=== PATIENT | male | born 1970 | race African-American/Black ===

== ENCOUNTER 2017-06-24 18:00 | Emergency (ER) | payer OTHER ==
[~2017-06-24] VITALS: Ht 182.9 cm; Wt 77.1 kg
[~2017-06-24 18:00] MED LIST: ABILIFY15 MG ORAL; ABILIFY2 MG ORAL; ALBUTEROL2.5 MG/3 M INH; CELEXA20 MG ORAL; CELEXA40 MG ORAL; IBUPROFEN600 MG ORAL; NKM; TRAZODONE HCL150 MG ORAL; TRAZODONE HCL300 MG ORAL
[2017-06-24 18:10] VITALS: BP 151/110
[2017-06-24 19:33] LABS: EOSINOPHILS % (AUTO) 1.6 % (0.0-3.0); MEAN CORPUSCULAR HEMOGLOBIN 31.2 PG (27.0-31.0); MEAN CORPUSCULAR HGB CONC 33.5 G/DL (32.0-36.0); MEAN CORPUSCULAR VOLUME 93 FL (80-99); MEAN PLATELET VOLUME 6.2 FL (6.5-10.1); MONOCYTES % (AUTO) 2.3 % (1.0-10.0); NEUTROPHILS % (AUTO) 73.1 % (45.0-75.0); PLATELET COUNT 376 K/UL (150-450); RED BLOOD COUNT 4.55 M/UL (4.70-6.10); RED CELL DISTRIBUTION WIDTH 15.8 % (11.6-14.8); WHITE BLOOD COUNT 12.5 K/UL (4.8-10.8)
[2017-06-24 19:46] LABS: ACETAMINOPHEN < 10 ug/mL (10-30); ALANINE AMINOTRANSFERASE 16 U/L (3-41); ALCOHOL 356 mg/dL; ANION GAP 16 (5-15); ASPARTATE AMINO TRANSFERASE 30 U/L (5-40); CALCIUM 9.1 mg/dL (8.6-10.2); CARBON DIOXIDE 28 mEQ/L (20-30); CHLORIDE 98 mEQ/L (98-107); CREATININE 0.8 mg/dL (0.7-1.2); GLOMERULAR FILTRATION RATE > 60 mL/min (>60); HEMOLYSIS 4; POTASSIUM 3.8 mEQ/L (3.4-4.9); SODIUM 142 mEQ/L (135-145); TOTAL PROTEIN 9.2 g/dL (6.6-8.7); TROPONIN I < 0.30 ng/mL (<=0.30)
[2017-06-24 20:00] VITALS: BP 134/87
--- NOTE | 2017-06-24 20:04 | Emergency Room Report ---
History of Present Illness General Chief Complaint: Alcohol Intoxication Source: Patient (HUMBERTO JUAN M.D.) Present Illness HPI 47-year-old male presents ED for evaluation. Patient is intoxicated as per EMS. Found on the street. Patient was to drinking alcohol. Denies any drug use. Per EMS blood pressure is high. Patient has history of hypertension but does not have medication at this time. Denies chest pain or shortness of breath. No other aggravating or relieving factors. Denies any other associated symptoms (HUMBERTO JUAN M.D.) Allergies: Coded Allergies: No Known Allergies (Unverified , 08/07/12) Patient History Past Medical History: HTN, asthma, seizures Past Surgical History: none Pertinent Family History: none Social History: Reports: alcohol use, Denies: drug use, smoking Immunizations: UTD Reviewed Nursing Documentation: PMH: Agreed, PSxH: Agreed (HUMBERTO JUAN M.D.) Nursing Documentation-PMH Hx Hypertension: Yes Hx Asthma: Yes History Of Psychiatric Problem: Yes - [place]; Schizophrenia Hx Seizures: Yes - TONIC-CLONIC (HUMBERTO JUAN M.D.) Review of Systems All Other Systems: negative except mentioned in HPI (HUMBERTO JUAN M.D.) Physical Exam Vital Signs Date Time Temp Pulse Resp B/P Pulse Ox O2 Delivery O2 Flow Rate FiO2 06/24/17 17:49 97.9 100 18 147/100 100 Room Air Sp02 EP Interpretation: reviewed, normal General Appearance: other - intoxicated Head: normocephalic Eyes: bilateral eye PERRL, bilateral eye normal inspection ENT: normal ENT inspection Neck: normal inspection Respiratory: chest non-tender, lungs clear, normal breath sounds, speaking full sentences Cardiovascular #1: regular rate, rhythm, no edema Gastrointestinal: normal inspection Rectal: deferred Genitourinary: no CVA tenderness Musculoskeletal: normal inspection Neurologic: other - intoxicated Psychiatric: other - intoxicated Skin: normal inspection Lymphatic: normal inspection (HUMBERTO JUAN M.D.) Medical Decision Making Diagnostic Impression: Primary Impression: Acute alcoholic intoxication Qualified Codes: F10.920 - Alcohol use, unspecified with intoxication, uncomplicated Additional Impression: Drug abuse Labs Test 06/24/17 18:06 06/24/17 19:18 White Blood Count 12.5 K/UL (4.8-10.8) Red Blood Count 4.55 M/UL (4.70-6.10) Hemoglobin 14.2 G/DL (14.2-18.0) Hematocrit 42.5 % (42.0-52.0) Mean Corpuscular Volume 93 FL (80-99) Mean Corpuscular Hemoglobin 31.2 PG (27.0-31.0) Mean Corpuscular Hemoglobin Concent 33.5 G/DL (32.0-36.0) Red Cell Distribution Width 15.8 % (11.6-14.8) Platelet Count 376 K/UL (150-450) Mean Platelet Volume 6.2 FL (6.5-10.1) Neutrophils (%) (Auto) 73.1 % (45.0-75.0) Lymphocytes (%) (Auto) 22.0 % (20.0-45.0) Monocytes (%) (Auto) 2.3 % (1.0-10.0) Eosinophils (%) (Auto) 1.6 % (0.0-3.0) Basophils (%) (Auto) 1.0 % (0.0-2.0) Sodium Level 142 mEQ/L (135-145) Potassium Level 3.8 mEQ/L (3.4-4.9) Chloride Level 98 mEQ/L (98-107) Carbon Dioxide Level 28 mEQ/L (20-30) Anion Gap 16 (5-15) Blood Urea Nitrogen 4 mg/dL (7-23) Creatinine 0.8 mg/dL (0.7-1.2) Estimat Glomerular Filtration Rate > 60 mL/min (>60) Glucose Level 84 mg/dL (74-106) Calcium Level 9.1 mg/dL (8.6-10.2) Total Bilirubin < 0.2 mg/dL (0.0-1.2) Aspartate Amino Transf (AST/SGOT) 30 U/L (5-40) Alanine Aminotransferase (ALT/SGPT) 16 U/L (3-41) Alkaline Phosphatase 141 U/L (40-129) Troponin I < 0.30 ng/mL (<=0.30) Total Protein 9.2 g/dL (6.6-8.7) Albumin 4.8 g/dL (3.5-5.2) Globulin 4.4 g/dL Albumin/Globulin Ratio 1.0 (1.0-2.7) Salicylates Level < 1 mg/dL (10-30) Acetaminophen Level < 10 ug/mL (10-30) Serum Alcohol 356 mg/dL (HUMBERTO JUAN M.D.) ER Course Patient presents with polysubstance abuse. He slept through the night without a problem. Now awake. Not suicidal homicidal. We'll discharge in the morning. This patient is a chronic risk of self injury due to poor impulse control, limited coping skills, and judgment intermittently impaired by intoxication. I believe that the available clinical evidence to suggest that these characteristics derived primarily from personality disorder and are likely very stable over time. Hospitalization would likely attenuate risk of self-harm only during senior care period, without lasting risk reduction. Serious self-harm , while possible, would likely be inadvertent, and because of impulsivity, and foreseeable. For these reasons, I do not believe hospitalization would provide meaningful reduction in risk of self-harm. (AIDAN DIEZ M.D.) Last Vital Signs Date Time Temp Pulse Resp B/P Pulse Ox O2 Delivery O2 Flow Rate FiO2 06/24/17 18:10 75 17 151/110 95 Room Air 06/24/17 17:49 97.9 Status: improved (HUMBERTO JUAN M.D.) Disposition: HOME, SELF-CARE Condition: Stable Referrals: [facility] (PCP) Additional Instructions: Abstain from drugs and alcohol. Followup with mental health clinic in a week. Return if symptom worsen. HUMBERTO JUAN M.D. Jun 24, 2017 20:04 AIDAN DIEZ M.D. Jun 25, 2017 03:24
[2017-06-24 23:00] VITALS: BP 115/73
[2017-06-25 01:08] VITALS: BP 135/97
[2017-06-25 03:10] VITALS: BP 117/86
[2017-06-25 05:43] VITALS: BP 137/84
== END 2017-06-25 05:42 | disposition home or self-care (01) ==
LOC: EDBD 18:00 → EMR 19:57
DX: F10.920 Alcohol use, unspecified with intoxication, uncomplicated (principal); Y90.8 Blood alcohol level of 240 mg/100 ml or more; I10 Essential (primary) hypertension; J45.909 Unspecified asthma, uncomplicated; F31.9 Bipolar disorder, unspecified; F20.9 Schizophrenia, unspecified; F19.10 Other psychoactive substance abuse, uncomplicated
CPT/HCPCS: 36415; 80053; 80300; 80329; 84484; 85025; 99284

== ENCOUNTER 2019-08-02 22:13 | Emergency (ER) | payer OTHER ==
[~2019-08-02] VITALS: Ht 180.3 cm; Wt 77.1 kg
[2019-08-02 22:30] VITALS: BP 138/86
--- NOTE | 2019-08-02 22:32 | NUR ---
ED Nurse Note: Pt brought in by FRANCISCA emanuel in hand cuffs, needing medical clearance, reports SOB, VSS spo2 94% on RA
--- NOTE | 2019-08-02 22:35 | Emergency Room Report ---
History of Present Illness General Chief Complaint: Medical Clearance Source: Patient Present Illness HPI Presents with shortness of breath with history of asthma. He denies fevers or chills. There is mild amount of chest pain which is more pleuritic. The patient has been on steroids in the past. He feels he needs a breathing treatment and steroids at this time. Patient does smoke. He denies productive sputum at this time. He rates the chest pain is 2/10 and worse with deep inspiration. Its more of an ache. No sore throat, palpitations, nausea, vomiting, diarrhea, dysuria, abdominal pain, joint pain, rashes, depression, anxiety, visual changes, headache. Patient has a history of seizures and hypertension. He states these conditions are stable. Allergies: Coded Allergies: No Known Allergies (Unverified , 08/07/12) Patient History Past Medical History: see triage record Social History: Reports: smoking, alcohol use, drug use - Prior cocaine Social History Narrative In custody Reviewed Nursing Documentation: PMH: Agreed; PSxH: Agreed Nursing Documentation-PMH Past Medical History: No History, Except For Hx Hypertension: Yes Hx Asthma: Yes History Of Psychiatric Problem: Yes Hx Seizures: Yes - TONIC-CLONIC Review of Systems All Other Systems: negative except mentioned in HPI Physical Exam Vital Signs Date Time Temp Pulse Resp B/P (MAP) Pulse Ox O2 Delivery O2 Flow Rate FiO2 08/02/19 22:21 98.1 111 20 138/86 (103) 95 Room Air Sp02 EP Interpretation: reviewed, normal General Appearance: well appearing, no apparent distress, GCS 15, non-toxic Head: normocephalic Eyes: bilateral eye PERRL, bilateral eye Scleral Injection ENT: normal pharynx, moist mucus membranes Neck: supple Respiratory: chest non-tender, wheezing, expiration Cardiovascular #1: regular rate, rhythm Gastrointestinal: normal inspection Musculoskeletal: gait/station normal Neurologic: alert, grossly normal Psychiatric: mood/affect normal Skin: normal color - Patient fully dressed Medical Decision Making Diagnostic Impression: Primary Impression: Asthma Qualified Codes: J45.21 - Mild intermittent asthma with (acute) exacerbation ER Course Patient presents complaining about wheezing and some mild chest pain. Differential includes exacerbation of asthma with noncompliance, bronchitis, tobacco abuse amongst others. There is no evidence of pneumonia or significant respiratory compromise. The breathing treatment is ordered as is Tylenol. No imaging studies are indicated. Patient improved after breathing treatment and says the pain is improved. Patient is stable for booking. Advised to follow-up with his private physician. Last Vital Signs Date Time Temp Pulse Resp B/P (MAP) Pulse Ox O2 Delivery O2 Flow Rate FiO2 08/02/19 23:30 98.1 111 18 138/86 98 Room Air 21 Status: improved Disposition: D/C TO [facility] IN [facility] Condition: Improved Scripts Prednisone* (PREDNISONE*) 20 Mg Tablet 40 MG ORAL DAILY, #10 TAB Prov: Julio Rao MD 08/02/19 Albuterol Sulfate* (ALBUTEROL SULFATE MDI*) 8.5 Gm Hfa.aer.ad 2 PUFF INH Q6H, #1 EA 0 Refills Prov: Julio Rao MD 08/02/19 Julio Rao MD Aug 02, 2019 22:35
[2019-08-02] MEDS ORDERED: Acetaminophen 500mg (ES) tab ORAL ONE (22:45)
[2019-08-02] MEDS ORDERED: Albuterol ud Inhalation HHN ONE (22:45)
[2019-08-02] MEDS ORDERED: Ipratropium 0.02% Inh Soln 2.5ml UD HHN ONE (22:45)
--- NOTE | 2019-08-02 22:55 | NUR ---
ED Nurse Note: RT giving breathing tx
[2019-08-02] MEDS ORDERED: ALBUTEROL SULF8.5 GM INH (23:28)
[2019-08-02] MEDS ORDERED: PREDNISONE20 MG ORAL (23:28)
[2019-08-02 23:30] VITALS: BP 138/86
--- NOTE | 2019-08-02 23:30 | NUR ---
ED Discharge Note: PRESCRIPTIONS AND DISCHARGE PAPERWORK EXPLAINED TO PT. PT VERBALIZES UNDERSTANDING AND ALL QUESTIONS ANSWERED. PRESCRIPTIONS AND DISCHARGE PAPERWORK GIVEN TO PT AND ID WRISTBAND REMOVED. 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
== END 2019-08-02 23:30 ==
LOC: EMR 22:45
DX: J45.21 Mild intermittent asthma with (acute) exacerbation (principal); I10 Essential (primary) hypertension; F17.200 Nicotine dependence, unspecified, uncomplicated
CPT/HCPCS: 94640; 99283; J7512

== ENCOUNTER 2019-11-19 05:26 | Emergency (ER) | payer OTHER, SELFPAY ==
[~2019-11-19] VITALS: Ht 185.4 cm; Wt 77.1 kg
[~2019-11-19 05:26] MED LIST changes: +ALBUTEROL SULF8.5 GM INH; +PREDNISONE20 MG ORAL
[2019-11-19 05:33] VITALS: BP 162/76
[2019-11-19] MEDS ORDERED: Citalopram Hydrobromide 10mg Tab ORAL STA (05:40)
--- NOTE | 2019-11-19 05:40 | NUR ---
ED Nurse Note: Patient was BIB [employer] due to behavioral complains. Patient stated to [employer] wants run in to the traffic. Patient presented calm, cooperative, with limping gait, deny any SI ideations right now, wants to be placed in psychiatric facility, per patient was noncompliance with his psych medications. AAO x4, VSS at this time, skin is warm to touch.
--- NOTE | 2019-11-19 05:41 | NUR ---
ED Nurse Note: Sitter Bandar by bed side
[2019-11-19] MEDS ORDERED: Albuterol/Ipratropium 3ml neb HHN ONE (05:45)
--- NOTE | 2019-11-19 05:45 | NUR ---
ED Nurse Note: Patient was undressed, safety precautions were checked
--- NOTE | 2019-11-19 05:47 | NUR ---
ED Nurse Note: Patients all belongings were placed in locker # 3
--- NOTE | 2019-11-19 05:50 | Emergency Room Report ---
History of Present Illness General Chief Complaint: Suicidal Source: Patient, [employer] (Julio Rao MD) Present Illness HPI Patient is brought in by [employer]. They were summoned as she presented to another unit telling them that he had suicidal thoughts and plans. His plan is to walk into traffic. He has a history of depression and bipolar disorder. He also has substance abuse and admits to alcohol and methamphetamine use today. He also smokes cigarettes. The patient is felt chilled during the day. He is complaining about foot pain bilaterally. He has been walking a lot. He also has some swelling in his ankles. This is intermittent and he is not told the cause. [employer] was considering placing the patient on a 5150. The patient states he takes Celexa 40 mg, Abilify 515 mg and trazodone 300mg. He has not taken these medications for 2 months. He was last hospitalized for psychiatric reasons last month. Patient states he has been wheezing. He denies any productive cough. There is no sore throat or headache. (Julio Rao MD) Allergies: Coded Allergies: No Known Allergies (Unverified , 08/07/12) Patient History Past Medical History: see triage record Social History: Reports: smoking, alcohol use, drug use Social History Narrative Homeless -born in [place] with family still in town Reviewed Nursing Documentation: PMH: Agreed; PSxH: Agreed (Julio Rao MD) Nursing Documentation-PMH Hx Hypertension: Yes Hx Asthma: Yes Hx Seizures: Yes - TONIC-CLONIC (Julio Rao MD) Review of Systems All Other Systems: negative except mentioned in HPI (Julio Rao MD) Physical Exam Vital Signs Date Time Temp Pulse Resp B/P (MAP) Pulse Ox O2 Delivery O2 Flow Rate FiO2 11/19/19 05:27 98.2 118 20 162/76 (104) 98 Room Air Sp02 EP Interpretation: reviewed, normal General Appearance: well appearing, no apparent distress, GCS 15, non-toxic Head: normocephalic Eyes: bilateral eye PERRL, bilateral eye EOMI, bilateral eye Scleral Injection ENT: moist mucus membranes, other - Burn left lower lip Neck: supple Respiratory: chest non-tender, lungs clear, normal breath sounds Cardiovascular #1: regular rate, rhythm, edema - Trace to 1+ bilaterally Cardiovascular #2: 2+ radial (R) Gastrointestinal: normal inspection, normal bowel sounds, non tender, no mass, non-distended Genitourinary: no CVA tenderness Musculoskeletal: back normal, normal range of motion, no calf tenderness, gait/ station normal Neurologic: alert, motor strength/tone normal, desktop technician III-XII nml as tested, oriented x3, sensory intact, cerebellar normal, speech normal Suicide Risk Assessment: Suicidal Ideation: Yes Had intent to initiate attempt: Yes Pt's plan for suicide attempt: Yes Has means to complete attempt: Yes (Julio Rao MD) Medical Decision Making Diagnostic Impression: Primary Impression: Suicidal ideation Additional Impression: Substance abuse ER Course Patient presents with suicidal ideation with plan with a history of bipolar disorder. Differential includes toxic exacerbation of bipolar disorder, drug abuse, electrolyte imbalance, noncompliance amongst others. Patient will be medically evaluated here. He denies any chest pain. He does complain about wheezing and has a history of asthma. Chest x-ray is indicated. As the patient is voluntary at this time no 5150 is needed. The patient will be medically evaluated and most likely will need psychiatric care and transfer. (Julio Rao MD) ER Course patient signed out to [facility] labs and reevaluation. EtOH 12, amphetamine positive. Patient is medically cleared and pending psychiatric disposition Labs Test 11/19/19 06:10 White Blood Count 10.3 K/UL (4.8-10.8) Red Blood Count 4.12 M/UL (4.70-6.10) Hemoglobin 11.2 G/DL (14.2-18.0) Hematocrit 34.1 % (42.0-52.0) Mean Corpuscular Volume 83 FL (80-99) Mean Corpuscular Hemoglobin 27.1 PG (27.0-31.0) Mean Corpuscular Hemoglobin Concent 32.7 G/DL (32.0-36.0) Red Cell Distribution Width 16.5 % (11.6-14.8) Platelet Count 381 K/UL (150-450) Mean Platelet Volume 5.6 FL (6.5-10.1) Neutrophils (%) (Auto) 70.7 % (45.0-75.0) Lymphocytes (%) (Auto) 21.8 % (20.0-45.0) Monocytes (%) (Auto) 4.7 % (1.0-10.0) Eosinophils (%) (Auto) 1.6 % (0.0-3.0) Basophils (%) (Auto) 1.3 % (0.0-2.0) Urine Color Pale yellow Urine Appearance Clear Urine pH 7 (4.5-8.0) Urine Specific Davis 1.005 (1.005-1.035) Urine Protein 1+ (NEGATIVE) Urine Glucose (UA) Negative (NEGATIVE) Urine Ketones Negative (NEGATIVE) Urine Blood 1+ (NEGATIVE) Urine Nitrite Negative (NEGATIVE) Urine Bilirubin Negative (NEGATIVE) Urine Urobilinogen Normal MG/DL (0.0-1.0) Urine Leukocyte Esterase Negative (NEGATIVE) Urine RBC 2-4 /HPF (0 - 0) Urine WBC 0-2 /HPF (0 - 0) Urine Squamous Epithelial Cells Occasional /LPF Urine Bacteria Occasional /HPF (NONE) Sodium Level 135 MMOL/L (136-145) Potassium Level 3.6 MMOL/L (3.5-5.1) Chloride Level 100 MMOL/L (98-107) Carbon Dioxide Level 25 MMOL/L (21-32) Anion Gap 10 mmol/L (5-15) Blood Urea Nitrogen 7 mg/dL (7-18) Creatinine 0.7 MG/DL (0.55-1.30) Estimat Glomerular Filtration Rate > 60 mL/min (>60) Glucose Level 91 MG/DL (74-106) Calcium Level 8.5 MG/DL (8.5-10.1) Total Bilirubin 0.2 MG/DL (0.2-1.0) Aspartate Amino Transf (AST/SGOT) 29 U/L (15-37) Alanine Aminotransferase (ALT/SGPT) 35 U/L (12-78) Alkaline Phosphatase 98 U/L (46-116) Total Creatine Kinase 208 U/L (26-308) Total Protein 7.4 G/DL (6.4-8.2) Albumin 3.6 G/DL (3.4-5.0) Globulin 3.8 g/dL Albumin/Globulin Ratio 0.9 (1.0-2.7) Salicylates Level 1.1 ug/mL (2.8-20) Urine Opiates Screen Negative (NEGATIVE) Acetaminophen Level < 3 MCG/ML (10-30) Urine Barbiturates Screen Negative (NEGATIVE) Phencyclidine (PCP) Screen Negative (NEGATIVE) Urine Amphetamines Screen Positive (NEGATIVE) Urine Benzodiazepines Screen Negative (NEGATIVE) Urine Cocaine Screen Negative (NEGATIVE) Urine Marijuana (THC) Screen Negative (NEGATIVE) Serum Alcohol 12 mg/dL (Cody Murphy MD) Chest X-Ray Diagnostic Results Chest X-Ray Diagnostic Results : Chest X-Ray Ordered: Yes # of Views/Limited/Complete: 1 View Indication: Other EP Interpretation: Yes Interpretation: no consolidation, no effusion, no pneumothorax Impression: No acute disease Electronically Signed by: Electronically signed by Julio Rao MD (Julio Rao MD) Last Vital Signs Date Time Temp Pulse Resp B/P (MAP) Pulse Ox O2 Delivery O2 Flow Rate FiO2 11/19/19 13:25 98.2 98 18 155/75 98 Room Air Status: improved (Julio Rao MD) Status: unchanged (Cody Murphy MD) Disposition: XFER TO PSYCH HOSP/UNIT Condition: Serious Referrals: [facility] (PCP) Julio Rao MD Nov 19, 2019 05:50 Cody Murphy MD Nov 19, 2019 07:34
--- NOTE | 2019-11-19 06:16 | NUR ---
ED Nurse Note: Blood and urine spesimen were collected sent down
[2019-11-19 06:28] LABS: APPEARANCE,URINE CLEAR; BASOPHILS % (AUTO) 1.3 % (0.0-2.0); BILIRUBIN, URINE NEGATIVE (NEGATIVE); COLOR,URINE PALE YELLOW; EOSINOPHILS % (AUTO) 1.6 % (0.0-3.0); GLUCOSE, URINE (UA) NEGATIVE (NEGATIVE); HEMATOCRIT 34.1 % (42.0-52.0); HEMOGLOBIN 11.2 G/DL (14.2-18.0); KETONES,URINE NEGATIVE (NEGATIVE); LEUKOCYTE ESTERASE ,URINE NEGATIVE (NEGATIVE); LYMPHOCYTES % (AUTO) 21.8 % (20.0-45.0); MEAN CORPUSCULAR VOLUME 83 FL (80-99); MONOCYTES % (AUTO) 4.7 % (1.0-10.0); NEUTROPHILS % (AUTO) 70.7 % (45.0-75.0); NITRITE,URINE NEGATIVE (NEGATIVE); PH,URINE 7 (4.5-8.0); PLATELET COUNT 381 K/UL (150-450); PROTEIN,URINE 1+ (NEGATIVE); RED BLOOD COUNT 4.12 M/UL (4.70-6.10); RED CELL DISTRIBUTION WIDTH 16.5 % (11.6-14.8); UROBILINOGEN,URINE NORMAL MG/DL (0.0-1.0); WHITE BLOOD COUNT 10.3 K/UL (4.8-10.8)
[2019-11-19 06:34] LABS: ANION GAP 10 mmol/L (5-15); BLOOD UREA NITROGEN 7 mg/dL (7-18); CALCIUM 8.5 MG/DL (8.5-10.1); CARBON DIOXIDE 25 MMOL/L (21-32); CHLORIDE 100 MMOL/L (98-107); CREATININE 0.7 MG/DL (0.55-1.30); POTASSIUM 3.6 MMOL/L (3.5-5.1); SODIUM 135 MMOL/L (136-145)
[2019-11-19 06:41] LABS: ALANINE AMINOTRANSFERASE 35 U/L (12-78); ALBUMIN 3.6 G/DL (3.4-5.0); ALBUMIN/GLOBULIN RATIO 0.9 (1.0-2.7); ALKALINE PHOSPHATASE 98 U/L (46-116); ASPARTATE AMINO TRANSFERASE 29 U/L (15-37); BILIRUBIN,TOTAL 0.2 MG/DL (0.2-1.0); CREATINE KINASE 208 U/L (26-308)
--- NOTE | 2019-11-19 06:46 | Diagnostic Imaging Report ---
EXAM: XR Chest, 1 View CLINICAL HISTORY: DYSPNEA TECHNIQUE: Frontal view of the chest. COMPARISON: No relevant prior studies available. FINDINGS: Lungs: Mild patchy infiltrates in the right mid and lower lungs Pleural space: Unremarkable. No pneumothorax. Heart: Unremarkable. No cardiomegaly. Mediastinum: Unremarkable. Bones/joints: Irregularity of the right seventh posterolateral rib. IMPRESSION: Mild patchy infiltrates in right mid to lower lungs. Recommend followup. Age-indeterminate irregularity of the right seventh posterolateral rib. If there is acute pain or trauma, CT may further evaluate.
--- NOTE | 2019-11-19 07:05 | NUR ---
HAND-OFF: Report given to BUD Canales. Patient is sleeping, VSS at this time, no acute distress noticed.
--- NOTE | 2019-11-19 07:41 | NUR ---
ED Nurse Note:pt. is sleeping ,sitter is at bed side, no signs of distress noted, still requesting voluntary psych placement
[2019-11-19 12:00] VITALS: BP 155/75
--- NOTE | 2019-11-19 12:00 | NUR ---
ED Nurse Note:pt. is resting in his room provided with lunch
--- NOTE | 2019-11-19 12:47 | NUR ---
ED Nurse Note:called psych with report -given to Saritha
--- NOTE | 2019-11-19 13:00 | NUR ---
ED Nurse Note: d/c sitter at the bedside
--- NOTE | 2019-11-19 13:00 | NUR ---
ED Nurse Note:pt. was picked up by ambulance for hospital transportation
[2019-11-19 13:25] VITALS: BP 155/75
[2019-11-19] MEDS ORDERED: TraZODone 100mg tab ORAL SCH (21:00)
== END 2019-11-19 13:32 ==
LOC: EMR 05:40
DX: R45.851 Suicidal ideations (principal); F15.10 Other stimulant abuse, uncomplicated; I10 Essential (primary) hypertension; G40.909 Epilepsy, unspecified, not intractable, without status epilepticus; F17.200 Nicotine dependence, unspecified, uncomplicated; Z79.899 Other long term (current) drug therapy
CPT/HCPCS: 36415; 71045; 80053; 80307; 81003; 82550; 85025; G0480; G0481; Z7502; 99284; J7620

== ENCOUNTER 2020-02-11 03:03 | Emergency (ER) | payer OTHER ==
[2020-02-11] MEDS ORDERED: Solu-MEDROL 125mg Inj ONE (03:22)
[2020-02-11] MEDS: Albuterol ud Inhalation HHN SCH ×6 (05:56→07:15)
[2020-02-11 06:00] VITALS: BP 152/84
--- NOTE | 2020-02-11 06:00 | NUR ---
ED Nurse Note: Patient came in at 3am, unable to obtain line and labs until 0510. ERMD asked to re-enter orders into the system for continuity of lab processing. Patient currently receiving an additional breathing treament after expressing that he felt wheezy again. Vital signs are within normal range and documented.
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
--- NOTE | 2020-02-11 07:11 | NUR ---
HAND-OFF: Report given to Dulce Garza RN.
[2020-02-11] MEDS ORDERED: PREDNISONE20 MG ORAL (07:13)
[2020-02-11] MEDS ORDERED: ALBUTEROL SULF8.5 GM INH (07:13)
--- NOTE | 2020-02-11 07:15 | NUR ---
ED Nurse Note: Received pt on bed, awake and alert; breathing treatment on-going, pt tolerated well. Dr. Rao at bedside.
[2020-02-11 08:20] VITALS: BP 141/78
--- NOTE | 2020-02-11 08:20 | NUR ---
ER DISCHARGE NOTE: Patient is cleared to be discharged per ERMD, pt is aox4, on room air, with stable vital signs. pt was given dc and prescription instructions, pt was able to verbalize understanding, pt id band and iv site removed without complications. pt is able to ambulate with steady gait. pt took all belongings.
--- NOTE | 2020-02-11 15:43 | Diagnostic Imaging Report ---
Indication: Dyspnea Comparison: 11/19/2019 A single view chest radiograph was obtained. Findings: There is an abnormal density in the periphery of the right midlung. This appears pleural-based or chest wall based and could be soft tissue swelling or a hematoma associated with a fracture of the seventh rib which is noted. The fracture is better seen on the prior study. Heart size is normal. Left hemidiaphragm is elevated. Bones are unremarkable. IMPRESSION: Abnormal ill-defined pleural-based density in the right midlung. This likely represents a chest wall hematoma from the adjacent seventh rib fracture. Follow-up and/or CT evaluation is suggested for confirmation.
== END 2020-02-11 08:20 | disposition home or self-care (01) ==
LOC: EMR 03:13
DX: J44.1 Chronic obstructive pulmonary disease with (acute) exacerbation (principal); F19.10 Other psychoactive substance abuse, uncomplicated; F17.200 Nicotine dependence, unspecified, uncomplicated; I10 Essential (primary) hypertension; G40.909 Epilepsy, unspecified, not intractable, without status epilepticus
CPT/HCPCS: 71045; J2930; J7030; Z7502; 99284

== ENCOUNTER 2020-04-16 20:12 | Emergency (ER) | payer OTHER ==
[~2020-04-16] VITALS: Ht 182.9 cm; Wt 81.6 kg
--- NOTE | 2020-04-16 20:12 | NUR ---
ED Nurse Note: PT brought in RA [id number] from [facility] for albuterol inhaler refill. vss, nad, aaox4, ambulatory. erpa at bedside.
--- NOTE | 2020-04-16 20:32 | Emergency Room Report ---
History of Present Illness General Chief Complaint: Asthma Source: Patient Present Illness HPI 50-year-old male with extensive history of alcohol intoxication and methamphetamine abuse as well as COPD brought in by paramedics requesting a medication refill on albuterol inhaler. Patient appears to be under the influence of methamphetamine. Denies any chest pain, shortness of breath, headache and dizziness. Denies any cough or congestion, abdominal pain, nausea vomiting. Appears to be slightly tachycardic however does admit to using methamphetamine. Also has history of bipolar disorder. Patient agrees to see psychiatrist as outpatient. Vital signs within normal limit and elevated blood pressure and slight tachycardia however oxygenation within normal limits and afebrile. Allergies: Coded Allergies: No Known Allergies (Unverified , 08/07/12) COVID-19 Screening Contact w/high risk pt: No Recent Travel to affected area: No Experienced COVID-19 symptoms?: No COVID-19 Testing performed RESEARCH DEVELOPMENT DIRECTOR: No Patient History Past Medical History: see triage record Past Surgical History: unable to obtain Pertinent Family History: unable to obtain Social History: Reports: alcohol use, drug use Reviewed Nursing Documentation: PMH: Agreed; PSxH: Agreed Nursing Documentation-PMH Past Medical History: No History, Except For Hx Hypertension: Yes Hx Asthma: Yes History Of Psychiatric Problem: Yes - bipolar Hx Seizures: Yes - TONIC-CLONIC Review of Systems All Other Systems: negative except mentioned in HPI Physical Exam Vital Signs Date Time Temp Pulse Resp B/P (MAP) Pulse Ox O2 Delivery O2 Flow Rate FiO2 04/16/20 20:09 97.9 120 15 176/108 (130) 96 Room Air Sp02 EP Interpretation: reviewed, abnormal - Slightly tachycardic General Appearance: no apparent distress, alert, GCS 15, non-toxic Head: normocephalic, atraumatic Eyes: bilateral eye normal inspection, bilateral eye PERRL ENT: hearing grossly normal, normal pharynx, no angioedema, normal voice Neck: full range of motion, supple/symm/no masses Respiratory: chest non-tender, lungs clear, normal breath sounds, speaking full sentences Cardiovascular #1: regular rate, rhythm, no edema Gastrointestinal: non tender Rectal: deferred Genitourinary: no CVA tenderness Musculoskeletal: back normal Neurologic: alert, motor strength/tone normal, oriented x3, sensory intact, responsive, speech normal Psychiatric: judgement/insight normal, memory normal, mood/affect normal, no suicidal/homicidal ideation Skin: no rash Lymphatic: no adenopathy Medical Decision Making SARKIS Attestation All my diagnosis and treatment plans were reviewed ad discussed with my supervising physician Dr. Craig Diagnostic Impression: Primary Impression: Medication refill Additional Impression: Asthma ER Course 50-year-old male with extensive history of alcohol intoxication and methamphetamine abuse as well as COPD brought in by paramedics requesting a medication refill on albuterol inhaler. Patient appears to be under the influence of methamphetamine. Denies any chest pain, shortness of breath, headache and dizziness. Denies any cough or congestion, abdominal pain, nausea vomiting. Appears to be slightly tachycardic however does admit to using methamphetamine. Also has history of bipolar disorder. Patient agrees to see psychiatrist as outpatient. Vital signs within normal limit and elevated blood pressure and slight tachycardia however oxygenation within normal limits and afebrile. Ddx considered but are not limited to: Asthma, asthma exacerbation, bronchitis, PNA, URI viral, bacterial bronchitis Vital signs: are WNL, pt. is afebrile H&PE are most consistent with: Medication refill for asthma ORDERS: Albuterol inhaler ED INTERVENTIONS: None required at this time. DISCHARGE: At this time pt. is stable for d/c to home. Will provide printed patient care instructions, and any necessary prescriptions. Care plan and follow up instructions have been discussed with the patient prior to discharge. Patient to follow primary doctor, take medication as directed, worsening symptoms return to the emergency room Last Vital Signs Date Time Temp Pulse Resp B/P (MAP) Pulse Ox O2 Delivery O2 Flow Rate FiO2 04/16/20 20:09 97.9 120 15 176/108 (130) 96 Room Air Disposition: HOME, SELF-CARE Condition: Stable Scripts Albuterol Sulfate (VENTOLIN HFA) 18 Gm Hfa.aer.ad 2 PUFFS INH EVERY 6 HOURS, #18 GM 0 Refills Prov: Leonora Rainey 04/16/20 Patient Instructions: Asthma, Adult Additional Instructions: Take medication as directed, follow-up primary doctor, if worsening symptoms return to the emergency room Leonora Rainey April 16, 2020 20:32
[2020-04-16] MEDS ORDERED: VENTOLIN HFA18 GM INH (20:33)
--- NOTE | 2020-04-16 20:40 | NUR ---
ER DISCHARGE NOTE: Patient is cleared to be discharged per ERMD, pt is aox4, on room air, with stable vital signs. pt was given dc and prescription instructions, pt was able to verbalize understanding, pt id band removed without complications. pt is able to ambulate with steady gait. pt took all belongings.
[2020-04-16 23:37] VITALS: BP 156/99
== END 2020-04-16 20:40 | disposition home or self-care (01) ==
LOC: EDBD 20:12 → EMR 20:25
DX: Z76.0 Encounter for issue of repeat prescription (principal); J45.909 Unspecified asthma, uncomplicated; F15.90 Other stimulant use, unspecified, uncomplicated; I10 Essential (primary) hypertension; G40.409 Other generalized epilepsy and epileptic syndromes, not intractable, without status epilepticus
CPT/HCPCS: 99283

== ENCOUNTER 2020-07-29 03:37 | Emergency (ER) | payer OTHER ==
[~2020-07-29] VITALS: Ht 182.9 cm; Wt 79.4 kg
[~2020-07-29 03:37] MED LIST changes: +VENTOLIN HFA18 GM INH
--- NOTE | 2020-07-29 03:45 | Emergency Room Report ---
History of Present Illness General Source: Patient, Medical Record, EMS Present Illness HPI This a 50-year-old male with a history of COPD. He also has history of substance abuse with methamphetamine, cocaine in the past, and alcohol. He called 911 from [employer] He was laying on the street. He said that he felt depressed and suicidal. This is similar to multiple visit for the same. Admits to alcohol and methamphetamine tonight. Denies any nausea vomiting. Recent psychiatric admission in the last couple months. Has not been taking his psychiatric medication. Allergies: Coded Allergies: No Known Allergies (Unverified , 08/07/12) COVID-19 Screening Contact w/high risk pt: No Recent Travel to affected area: No Experienced COVID-19 symptoms?: No Patient History Past Medical History: see triage record, old chart reviewed, psych hx Past Surgical History: none Pertinent Family History: none Social History: Reports: smoking, alcohol use, drug use Immunizations: other Reviewed Nursing Documentation: PMH: Agreed; PSxH: Agreed Nursing Documentation-PMH Hx Hypertension: Yes Hx Asthma: Yes Hx Seizures: Yes - TONIC-CLONIC Review of Systems Eye: Denies: eye pain, blurred vision ENT: Denies: ear pain, nose congestion, throat swelling Respiratory: Denies: cough, shortness of breath Cardiovascular: Denies: chest pain, palpitations Gastrointestinal: Denies: abdominal pain, diarrhea, nausea, vomiting Musculoskeletal: Denies: back pain, joint pain Skin: Denies: rash Neurological: Denies: headache, numbness Endocrine: Denies: increased thirst, increased urine Hematologic/Lymphatic: Denies: easy bruising All Other Systems: negative except mentioned in HPI Physical Exam Vitals unremarkable Sp02 EP Interpretation: reviewed, normal General Appearance: well appearing, no apparent distress, alert, other - Patient is sleepy. Head: normocephalic, atraumatic Eyes: bilateral eye PERRL, bilateral eye EOMI ENT: hearing grossly normal, normal pharynx Neck: full range of motion, supple, no meningismus Respiratory: chest non-tender, lungs clear, normal breath sounds Cardiovascular #1: regular rate, rhythm, no murmur Gastrointestinal: normal bowel sounds, non tender, no mass, no organomegaly, no bruit, non-distended Musculoskeletal: back normal, normal range of motion, gait/station normal Suicide Risk Assessment: Suicidal Ideation: Yes Had intent to initiate attempt: No Pt's plan for suicide attempt: No Has means to complete attempt: No Medical Decision Making Diagnostic Impression: Primary Impression: Acute alcoholic intoxication Qualified Codes: F10.920 - Alcohol use, unspecified with intoxication, uncomplicated Additional Impressions: Substance abuse Suicidal ideation ER Course Patient presents with alcohol intoxication. He also verbalized vague suicidal ideation. He slept here for a few hours. Now no longer suicidal. Will discharge home. This patient is a chronic risk of self injury due to poor impulse control, limited coping skills, and judgment intermittently impaired by intoxication. I believe that the available clinical evidence to suggest that these characteristics derived primarily from personality disorder and are likely very stable over time. Hospitalization would likely attenuate risk of self-harm only during care home period, without lasting risk reduction. Serious self-harm , while possible, would likely be inadvertent, and because of impulsivity, and foreseeable. For these reasons, I do not believe hospitalization would provide meaningful reduction in risk of self-harm. Status: improved Disposition: HOME, SELF-CARE Condition: Stable Patient Instructions: Substance Use Disorder Additional Instructions: Stop using drugs and alcohol. Follow-up with rehab in 7 days. Return if worse. Estevan Reese MD Jul 29, 2020 03:45
[2020-07-29 03:50] VITALS: BP 151/100
--- NOTE | 2020-07-29 03:50 | NUR ---
Nurse Note: Pt brought in by ambulance 62 c/o substance abuse. Per EMS, pt admitted to ETOH and meth use and feels depressed. Pt appears asleep on arrival and is easily arousabble. Pt poor historian, unwilling to answer questions. Pt hx of psych but not complient with meds.
[2020-07-29 05:34] VITALS: BP 148/88
[2020-07-29 05:50] VITALS: BP 148/88
--- NOTE | 2020-07-29 05:50 | NUR ---
Nurse Note: Pt awake, able to speak in full sentences, no signs of distress. Pt VSS, denies pain, shortness of breath, chest pain. Pt is being uncooperative and rambling using profanity in bed. Security and tool grinding technician at bedside; pt is being uncooperative. Patient is cleared to be discharged per ERMD. Pt is aox4, on room air, with stable vital signs. Pt was given dc instructions. Pt was able to verbalize understanding; instructed pt to follow up with primary care provider within one week. Pt ID band removed without complications. Pt is able to ambulate with steady gait. Pt took all belongings. Food and water provided; pt left with weather approrate clothing. Pt refused to signs discharge paperwork.
== END 2020-07-29 05:50 | disposition home or self-care (01) ==
LOC: EDBD 03:37 → EDUNIT# 03:37 → EMR 03:45
DX: R45.851 Suicidal ideations (principal); F10.920 Alcohol use, unspecified with intoxication, uncomplicated; F15.10 Other stimulant abuse, uncomplicated; F14.10 Cocaine abuse, uncomplicated; I10 Essential (primary) hypertension; J45.909 Unspecified asthma, uncomplicated; G40.409 Other generalized epilepsy and epileptic syndromes, not intractable, without status epilepticus; Z79.51 Long term (current) use of inhaled steroids
CPT/HCPCS: 99282

== ENCOUNTER 2020-12-26 23:15 | Emergency (ER) | payer OTHER ==
[~2020-12-26] VITALS: Ht 172.7 cm; Wt 72.6 kg
--- NOTE | 2020-12-26 23:20 | NUR ---
Patient BIBA for SOB, and wheezing. Patient is alert oriented x4, History of ashtma, ran out of his albuterol. stable. Patient denies smoking.
[2020-12-26] MEDS ORDERED: Albuterol ud Inhalation HHN ONE (23:45)
[2020-12-26] MEDS ORDERED: Ipratropium 0.02% Inh Soln 2.5ml UD HHN ONE (23:45)
--- NOTE | 2020-12-27 | Emergency Room Report ---
History of Present Illness General Chief Complaint: Dyspnea/Respdistress Source: Patient, EMS Present Illness HPI 50-year-old male with a history of asthma. He is out of his medication for last week. He presents with chief plaint of asthma exacerbation. He was on the street when he called 911. He called 911 2 hours prior and had a breathing treatment got better and did not go to the hospital. He denies any smoking. Similar symptom in the past. He said he does not have a doctor satisfied can get refill on his medication. Worse with exertion. Better with rest. He admits to alcohol use and methamphetamine use today. Allergies: Coded Allergies: No Known Allergies (Unverified , 08/07/12) COVID-19 Screening Contact w/high risk pt: No Recent Travel to affected area: No Experienced COVID-19 symptoms?: No COVID-19 Testing performed POSTING SPECIALIST: No Patient History Past Medical History: see triage record, old chart reviewed, asthma Past Surgical History: none Pertinent Family History: none Social History: Reports: alcohol use; Denies: smoking Immunizations: other Reviewed Nursing Documentation: PMH: Agreed; PSxH: Agreed Nursing Documentation-PMH Past Medical History: No History, Except For Hx Hypertension: Yes Hx Asthma: Yes Hx Diabetes: Yes History Of Psychiatric Problem: Yes - unspecified Hx Cerebrovascular Accident: Yes - 8 years ago Hx Seizures: Yes - h/o substance abuse Review of Systems Eye: Denies: eye pain, blurred vision ENT: Denies: ear pain, nose congestion, throat swelling Respiratory: Reports: shortness of breath; Denies: cough Cardiovascular: Denies: chest pain, palpitations Gastrointestinal: Denies: abdominal pain, diarrhea, nausea, vomiting Musculoskeletal: Denies: back pain, joint pain Skin: Denies: rash Neurological: Denies: headache, numbness Endocrine: Denies: increased thirst, increased urine Hematologic/Lymphatic: Denies: easy bruising All Other Systems: negative except mentioned in HPI Physical Exam Vital Signs Date Time Temp Pulse Resp B/P (MAP) Pulse Ox O2 Delivery O2 Flow Rate FiO2 12/26/20 23:17 99.0 126 20 142/72 (95) 97 Room Air 12/26/20 23:50 21 Vitals with tachycardia Sp02 EP Interpretation: reviewed, normal General Appearance: well appearing, no apparent distress, alert Head: normocephalic, atraumatic Eyes: bilateral eye PERRL, bilateral eye EOMI ENT: hearing grossly normal, normal pharynx Neck: full range of motion, supple, no meningismus Respiratory: chest non-tender, normal breath sounds, wheezing - Slight expiratory wheezing Cardiovascular #1: regular rate, rhythm, no murmur Gastrointestinal: normal bowel sounds, non tender, no mass, no organomegaly, no bruit, non-distended Musculoskeletal: back normal, normal range of motion, gait/station normal Psychiatric: mood/affect normal Medical Decision Making Homeless Attestation I, The treating physician, Dr Estevan Reese, has assessed and agrees that patient is medically stable for discharge to an outpatient disposition. Diagnostic Impression: Primary Impression: Asthma exacerbation Qualified Codes: J45.21 - Mild intermittent asthma with (acute) exacerbation Additional Impressions: Alcohol abuse Methamphetamine abuse ER Course This patient presents with asthma exacerbation worsened by his drug use. Better after breathing treatment. Will discharge home. Not suicidal homicidal. Last Vital Signs Date Time Temp Pulse Resp B/P (MAP) Pulse Ox O2 Delivery O2 Flow Rate FiO2 12/26/20 23:50 112 18 97 Room Air 21 12/26/20 23:17 99.0 142/72 (95) Status: improved Disposition: HOME, SELF-CARE Condition: Stable Scripts Prednisone* (PREDNISONE*) 20 Mg Tablet 40 MG ORAL DAILY, #10 TAB Prov: Estevan Reese MD 12/27/20 Fluticasone/Salmeterol (Advair 250-50 Diskus) 1 Each Blst.w.dev 1 PUFF INH EVERY 12 HOURS, #1 EA Prov: Estevan Reese MD 12/27/20 Albuterol Sulfate* (Albuterol Sulfate Hfa*) 8.5 Gm Hfa.aer.ad 2 PUFF INH Q4H, #1 INH Prov: Estevan Reese MD 12/27/20 Referrals: NON PHYSICIAN (PCP) Additional Instructions: Stop using drugs. Stop using alcohol. Follow-up with your doctor in 7 days. Go to rehab. Return if worse. Estevan Reese MD Dec 27, 2020 00:00
[2020-12-27] MEDS ORDERED: ADVAIR 250-501 EACH INH (00:04)
[2020-12-27] MEDS ORDERED: ALBUTEROL SULF8.5 G1 INH (00:04)
[2020-12-27] MEDS ORDERED: PREDNISONE20 MG ORAL (00:04)
[2020-12-27 00:10] VITALS: BP 142/72
== END 2020-12-27 00:15 | disposition home or self-care (01) ==
LOC: EDBD 23:15 → EMR 23:31
DX: J45.901 Unspecified asthma with (acute) exacerbation (principal); F10.10 Alcohol abuse, uncomplicated; F15.10 Other stimulant abuse, uncomplicated; E11.9 Type 2 diabetes mellitus without complications; I10 Essential (primary) hypertension; Z86.73 Personal history of transient ischemic attack (TIA), and cerebral infarction without residual deficits
CPT/HCPCS: 94640; J7512; Z7502; 99283